=== PATIENT | male | born 1950 | race African-American/Black ===

== ENCOUNTER 2017-04-30 11:28 | Emergency (ER) | payer MEDICARE, MEDICAID ==
[~2017-04-30] VITALS: Ht 175.3 cm; Wt 120.0 kg
[2017-04-30 11:32] VITALS: BP 146/83
[2017-04-30] MEDS ORDERED: METF-516 PO (11:33)
== END 2017-04-30 16:06 | disposition left against medical advice (07) ==
LOC: ER 12:18
DX: Z53.21 Procedure and treatment not carried out due to patient leaving prior to being seen by health care provider (principal)

== ENCOUNTER 2019-01-30 23:44 | Emergency (ER) | payer MEDICARE, MEDICAID ==
[~2019-01-30] VITALS: Ht 175.3 cm; Wt 82.0 kg
[~2019-01-30 23:44] MED LIST: METF-516 PO
[2019-01-30 23:49] VITALS: BP 139/94
== END 2019-01-31 01:33 | disposition left against medical advice (07) ==
LOC: ER 23:44
DX: R11.2 Nausea with vomiting, unspecified (principal); R73.09 Other abnormal glucose; Z53.21 Procedure and treatment not carried out due to patient leaving prior to being seen by health care provider
CPT/HCPCS: 82962

== ENCOUNTER 2019-01-31 03:26 | Emergency (ER) | payer MEDICARE, MEDICAID ==
[~2019-01-31] VITALS: Ht 180.3 cm; Wt 110.0 kg
[2019-01-31 04:25] VITALS: BP 141/99
[2019-01-31] MEDS ORDERED: ASPIRIN 325MG EC TABLET PO ONE (04:30)
== END 2019-01-31 05:23 | disposition left against medical advice (07) ==
LOC: ER 03:26
DX: R07.9 Chest pain, unspecified (principal); E11.9 Type 2 diabetes mellitus without complications
CPT/HCPCS: 93005; 99283

== ENCOUNTER 2020-10-13 09:32 | Emergency (ER) | payer MEDICARE, MEDICAID ==
[~2020-10-13] VITALS: Ht 188 cm; Wt 91.0 kg
[~2020-10-13 09:32] MED LIST changes: -METF-516 PO; +METF-818 PO
[2020-10-13 09:33] VITALS: BP 136/89
[2020-10-13] MEDS ORDERED: ACETAMINOPHEN 325MG TABLET PO STA (10:22)
== END 2020-10-13 10:50 | disposition left against medical advice (07) ==
LOC: ER 09:32
DX: M79.601 Pain in right arm (principal)
CPT/HCPCS: 99283